=== PATIENT | female | born 1990 | race Caucasian/White ===

== ENCOUNTER → 2020-02-10 | Outpatient (CLI) | payer OTHER | LOC: ULTRA 14:03 | DX: N63.11 Unspecified lump in the right breast, upper outer quadrant (principal) ==

== ENCOUNTER → 2020-05-10 | Outpatient (CLI) | payer OTHER ==
[~2020-05-10] MED LIST: ALLEGRA ALLERG180 MG PO; IUD; LAMICTAL100 MG PO; LEVO-T100 MCG PO; MULTIVITAMINS PO; PROAIR HFA8.5 GM INH; PROZAC40 MG PO
[2020-05-10 13:04] LABS: ABSOLUTE NEUTROPHILS 4.5 thou/uL (1.4-8.2); BASOPHILS 0.9 % (0.0-2.0); EOSINOPHILS 2.4 % (0.0-3.0); HEMATOCRIT 34.2 % (37.0-47.0); HEMOGLOBIN 11.2 gm/dL (12.0-15.0); LYMPHOCYTES 25.5 % (24.0-44.0); MCH 29.2 pg (26.0-34.0); MCHC 32.8 g/dL (28.0-37.0); MCV 88.9 fL (80.0-100.0); PLATELET COUNT 228 thou/uL (150-400); POLYS 65.2 % (36.0-66.0); RBC 3.85 mil/uL (4.20-5.00); RDW 15.4 % (10.5-14.5); WBC 6.9 thou/uL (4.0-11.0)
[2020-05-10 13:48] LABS: ALBUMIN 3.8 g/dL (3.4-5.0); ANION GAP 7 mmol/L (7-16); BUN 15 mg/dL (7-18); CALCIUM 8.9 mg/dL (8.5-10.1); CHLORIDE 103 mmol/L (98-107); CHOLESTEROL 161 mg/dL (<200); CO2 29 mmol/L (21-32); CREATININE 0.8 mg/dL (0.6-1.0); GLUCOSE 70 mg/dL (74-106); HDL CHOLESTEROL 66 mg/dL (>40); LDL CHOLESTEROL 82 mg/dL (<100); POTASSIUM 4.4 mmol/L (3.5-5.1); SGOT 12 U/L (15-37); SGPT 19 U/L (30-65); SODIUM 139 mmol/L (136-145); TC:HDL 2.4 Ratio (Not establshd); TOTAL BILIRUBIN 0.2 mg/dL (0.2-1.0); TOTAL PROTEIN 7.1 g/dL (6.4-8.2); TRIGLYCERIDE 69 mg/dL (<150); VLDL 14 mg/dL (<40)
== END ==
LOC: LABMALL 11:09
PROVIDERS: ATTEND Nurse Practitioner
DX: I10 Essential (primary) hypertension (principal)

== ENCOUNTER → 2020-05-16 | Outpatient (CLI) | payer OTHER | LOC: ULTRA 07:45 | PROVIDERS: ATTEND Family Medicine | DX: E04.1 Nontoxic single thyroid nodule (principal); E06.3 Autoimmune thyroiditis; E03.8 Other specified hypothyroidism ==

== ENCOUNTER → 2020-06-06 | Outpatient (CLI) | payer OTHER | LOC: LAB 09:20 | PROVIDERS: ATTEND Specialist | DX: Z01.812 Encounter for preprocedural laboratory examination (principal); Z20.828 Contact with and (suspected) exposure to other viral communicable diseases ==

== ENCOUNTER → 2020-06-10 | Outpatient (CLI) | payer OTHER ==
[~2020-06-10] VITALS: Ht 172.7 cm; Wt 104.3 kg
--- NOTE | 2020-06-14 08:54 | P ---
[facility] [place] [address] PROCEDURE REPORT Name: SOMMER GERONIMO Room #: REG EUNICE Florencio#: [id number] Admission: 06/10/20 Attend Phys: Adams Bazzi Discharge: Date of : 89 Report #: [id number] THIS REPORT FOR: cc: Rex Forman MD, Neal A. MD McElhinney, Christian C. MD ~ CC: Adams Forman MD DATE OF SERVICE: 06/10/2020 PROCEDURE PERFORMED: Colonoscopy. HISTORY OF PRESENT ILLNESS: The patient is a 30-year-old female with a change in bowel habits, noticing mucus type stools recently. Also, has some bright red blood per rectum. She has a family history of colon cancer in her mother and her grandmother, apparently had a flexible sigmoidoscopy several years ago for hemorrhoids. She does complain of constipation. Plan is for colonoscopy. DESCRIPTION OF PROCEDURE: The risks and benefits of the procedure were explained to the patient, those risks including but not limited to bleeding, perforation and the risk of sedation. She understood these risks and gave informed consent. Sedation was given using propofol per anesthesia. Next, digital rectal exam showed external hemorrhoids, nonbleeding, otherwise normal. Next, using a standard Olympus colonoscope, the scope was placed in the patient's anus and advanced under direct vision to the cecum. The overall prep was excellent. The cecum and ileocecal valve were normal in appearance. Terminal ileum was intubated and normal in appearance. Ascending, transverse, descending and sigmoid colon were all normal. The rectal mucosa was normal. On retroflexion, no abnormalities were noted. Close examination of the anal canal showed medium-sized external hemorrhoids. No evidence of fissure. No evidence of bleeding. The scope was then withdrawn and the procedure terminated. The patient tolerated the procedure well. IMPRESSION: 1. External hemorrhoids, likely source of bright red blood per rectum. 2. Otherwise, normal colonoscopy. RECOMMENDATIONS: 1. MiraLax on a daily basis. 2. Analpram p.r.n. 3. We would repeat colonoscopy in 5 years. [facility] [address] [place] [address] PROCEDURE REPORT Name: SOMMER GERONIMO Room #: [facility].#: [id number] Admission: 06/10/20 Attend Phys: Adams Bazzi Discharge: Date of : 89 Report #: [id number] Thank you for allowing me to participate in her care. <ELECTRONICALLY SIGNED> By: Adams Cruz MD 06/14/20 [id number] Adams Cruz MD /nt
== END | disposition home or self-care (01) ==
LOC: GI 07:21
PROVIDERS: ATTEND Specialist
DX: K92.1 Melena (principal); K59.00 Constipation, unspecified; K64.4 Residual hemorrhoidal skin tags; E03.9 Hypothyroidism, unspecified; F31.9 Bipolar disorder, unspecified; F41.9 Anxiety disorder, unspecified; D64.9 Anemia, unspecified; J45.909 Unspecified asthma, uncomplicated; Z80.0 Family history of malignant neoplasm of digestive organs; Z98.890 Other specified postprocedural states; Z79.899 Other long term (current) drug therapy; Z88.8 Allergy status to other drugs, medicaments and biological substances
CPT/HCPCS: 62110; 62900